=== PATIENT | female | born 1960 | race Caucasian/White ===

== ENCOUNTER 2022-04-13 10:46 | Emergency (ER) | payer BC ==
[2022-04-13 11:10] VITALS: BP 146/85; PULSE 76
[2022-04-13] MEDS ORDERED: Lidocaine 1% 10 ML MDV INJECT ONE (11:10)
== END 2022-04-13 11:53 | disposition home or self-care (01) ==
LOC: JD.ED 10:46
DX: S60.455A Superficial foreign body of left ring finger, initial encounter (principal); K21.9 Gastro-esophageal reflux disease without esophagitis; I10 Essential (primary) hypertension; Z90.710 Acquired absence of both cervix and uterus; Z88.5 Allergy status to narcotic agent; Z79.899 Other long term (current) drug therapy; W45.8XXA Other foreign body or object entering through skin, initial encounter
CPT/HCPCS: 64450; 99282; 99283-25

== ENCOUNTER 2024-03-19 14:00 | Emergency (ER) | payer BC, OTHER ==
[2024-03-19 15:04] VITALS: BP 160/106; PULSE 94
[2024-03-19] MEDS: Diphtheria,Pertussis(Acell),Tetanus Vaccine 0.5 ML Syringe IM ONE (18:12)
[2024-03-19] MEDS: Diphtheria/Tetanus Toxoids,Adult (Td) 0.5 ML SDV ONE (18:24)
== END 2024-03-19 18:27 | disposition home or self-care (01) ==
LOC: JD.ED 14:00
DX: S02.2XXA Fracture of nasal bones, initial encounter for closed fracture (principal); S09.93XA Unspecified injury of face, initial encounter; I10 Essential (primary) hypertension; K21.9 Gastro-esophageal reflux disease without esophagitis; Z88.5 Allergy status to narcotic agent; Z79.899 Other long term (current) drug therapy; Z90.710 Acquired absence of both cervix and uterus; W19.XXXA Unspecified fall, initial encounter
CPT/HCPCS: 70450; 70450-26; 70486; 70486-26; 90471; 90715; 99283; 99284-25

== ENCOUNTER 2024-08-29 10:58 | Day surgery (SDC) | payer MEDICARE ==
[~2024-08-29 10:58] MED LIST: Sodium Chloride 0.9% 10 ML Syringe FLUSH PRN; Sodium Chloride 0.9% 10 ML Syringe FLUSH SCH
[2024-08-29 11:49] LABS: ANION GAP 12.4 (5-15); BLOOD UREA NITROGEN,BUN 6 mg/dL (7-18); BUN/CREATININE RATIO 7.5 (14-18); CALCIUM 9.9 mg/dL (8.5-10.1); CARBON DIOXIDE,CO2 27 mEq/L (21-32); CHLORIDE,CL 98 mEq/L (98-107); CREATININE 0.8 mg/dL (0.55-1.02); ESTIMATED GFR 82 mL/min (>60); GLUCOSE RANDOM 119 mg/dL (70-99); POTASSIUM,K 3.4 mEq/L (3.5-5.1); SODIUM,NA 134 mEq/L (136-145)
[2024-08-29] MEDS ORDERED: Propofol 200 MG/20 ML SDV ONE ×5 (13:22→14:42)
[2024-08-29] MEDS ORDERED: Lidocaine 1% PF 2 ML SDV ONE ×2 (13:22)
[2024-08-29] MEDS ORDERED: Lidocaine 1% 4 ML ONE (13:22)
[2024-08-29] MEDS: Lactated Ringers 1,000 ML IV SCH (13:25)
[2024-08-29] MEDS ORDERED: Lactated Ringers 1,000 ML ONE (14:35)
[2024-08-29] MEDS ORDERED: Ketorolac 15 MG/ML SDV ONE ×2 (15:04→15:05)
[2024-08-29] MEDS ORDERED: Bupivacaine 0.5% 30 ML SDV ONE (15:09)
[2024-08-29 16:05] VITALS: BP 121/85; PULSE 88
== END 2024-08-29 16:10 | disposition home or self-care (01) ==
LOC: JD.SDS 10:58
PROVIDERS: ATTEND Surgery
DX: Z12.11 Encounter for screening for malignant neoplasm of colon (principal); K63.5 Polyp of colon; K21.00 Gastro-esophageal reflux disease with esophagitis, without bleeding; K29.50 Unspecified chronic gastritis without bleeding; K62.89 Other specified diseases of anus and rectum; K31.7 Polyp of stomach and duodenum; K64.8 Other hemorrhoids; K64.4 Residual hemorrhoidal skin tags; I10 Essential (primary) hypertension; F32.A Depression, unspecified; Z87.891 Personal history of nicotine dependence; Z79.899 Other long term (current) drug therapy
CPT/HCPCS: 36415; 43239; 45380; 45385; 46221; 80048; J0665; J1885; J2704; J3490; J7120; 00813

== ENCOUNTER 2024-10-17 09:01 | Day surgery (SDC) | payer MEDICARE, OTHER ==
[2024-10-17] MEDS ORDERED: Sodium Chloride 0.9% 10 ML Syringe FLUSH PRN (09:36)
[2024-10-17 09:59] LABS: BASOPHILS ABSOLUTE AUTO 0.1 K/mm3 (0.0-0.2); EOSINOPHILS ABSOLUTE AUTO 0.2 K/mm3 (0.0-0.4); EOSINOPHILS PERCENT AUTO 1.5 % (0.0-6.0); HEMATOCRIT 43.9 % (37.0-47.0); HEMOGLOBIN 14.8 gm/dl (12.0-16.0); IMMATURE GRAN ABSOLUTE AUTO 0.03 K/mm3 (0.00-0.05); IMMATURE GRAN PERCENT AUTO 0.3 % (0.0-0.4); LYMPHOCYTES ABSOLUTE AUTO 3.2 K/mm3 (1.0-4.8); LYMPHOCYTES PERCENT AUTO 29.9 % (24.0-44.0); MEAN CORPUSCULAR HEMOGLOBIN 31.8 pg (28.0-32.0); MEAN CORPUSCULAR HGB CONC 33.7 g/dl (32.0-36.0); MEAN CORPUSCULAR VOLUME 94.2 fl (83.0-99.0); MEAN PLATELET VOLUME 9.3 fl (9.4-12.3); MONOCYTES ABSOLUTE AUTO 0.9 K/mm3 (0.0-0.8); MONOCYTES PERCENT AUTO 8.5 % (0.0-8.0); NEUTROPHILS ABSOLUTE AUTO 6.3 K/mm3 (1.8-7.7); NEUTROPHILS PERCENT AUTO 58.8 % (41.0-71.0); PLATELET COUNT,PLT 343 K/mm3 (150-400); RED BLOOD CELL COUNT 4.66 M/mm3 (4.10-5.30); WHITE BLOOD CELL COUNT,WBC 10.64 K/mm3 (3.9-11.3)
[2024-10-17] MEDS: Sodium Chloride 0.9% 1,000 ML IV ONE (10:00)
[2024-10-17] MEDS: Ondansetron 4 MG/2 ML SDV IVPUSH ONE (10:01)
[2024-10-17] MEDS: Morphine 4 MG/ML Syringe IVPUSH ONE (10:02)
[2024-10-17 10:23] LABS: INR 1.03; PROTHROMBIN TIME 10.9 SECONDS (9.7-12.0)
[2024-10-17 10:25] LABS: A/G RATIO 0.7 (1-2); ALBUMIN 3.3 g/dl (3.4-5.0); ANION GAP 14.2 (5-15); BILIRUBIN TOTAL 0.7 mg/dL (0.2-1.0); BUN/CREATININE RATIO 17.5 (14-18); CALCIUM 9.5 mg/dL (8.5-10.1); CREATININE 0.8 mg/dL (0.55-1.02); EST CRCL DRUG DOSING (CG) 60.54 mL/min; POTASSIUM,K 3.2 mEq/L (3.5-5.1)
[2024-10-17 10:35] LABS: LACTIC ACID 1.5 mmol/L (0.4-2.0)
[2024-10-17] MEDS: Ketorolac 30 MG/ML SDV IVPUSH ONE (11:28)
[2024-10-17] MEDS ORDERED: Propofol 200 MG/20 ML SDV ONE (12:21)
[2024-10-17] MEDS ORDERED: fentaNYL 250 MCG/5 ML SDV ONE (12:22)
[2024-10-17] MEDS ORDERED: Rocuronium 50 MG/5 ML Vial ONE (12:24)
[2024-10-17] MEDS ORDERED: Ondansetron 4 MG/2 ML SDV ONE (12:27)
[2024-10-17] MEDS ORDERED: Dexamethasone 4 MG/ML 5 ML MDV ONE (12:27)
[2024-10-17] MEDS ORDERED: ceFAZolin 2 GM Vial ONE (12:54)
[2024-10-17] MEDS ORDERED: ePHEDrine 50 MG/ML SDV ONE (13:02)
[2024-10-17] MEDS ORDERED: HYDROmorphone 0.5 MG/0.5 ML Syringe ONE ×2 (13:31→13:32)
[2024-10-17] MEDS ORDERED: Sugammadex Sodium 200 MG/2 ML VIAL IV ONE (13:45)
[2024-10-17] MEDS: Iopamidol 612 MG/ML 30 ML SDV ONE (14:47)
[2024-10-17] MEDS ORDERED: fentaNYL 100 MCG/2 ML SDV IVPUSH PRN (15:23)
[2024-10-17] MEDS ORDERED: HYDROmorphone 0.5 MG/0.5 ML Syringe IVPUSH PRN (15:23)
[2024-10-17] MEDS ORDERED: Ketorolac 30 MG/ML SDV IVPUSH SCH (15:30)
[2024-10-17] MEDS: Bupivacaine 0.5% 30 ML SDV ONE (15:34)
[2024-10-17] MEDS: EPINEPHrine 1 MG/ML SDV ONE (15:35)
[2024-10-17 16:41] VITALS: BP 141/93; PULSE 65
[2024-10-17] MEDS: oxyCODONE 5 MG Tab PO PRN (16:47)
== END 2024-10-17 17:15 | disposition home or self-care (01) ==
LOC: JD.ED 09:01 → JD.SDS 12:58
PROVIDERS: ATTEND Surgery
DX: K80.10 Calculus of gallbladder with chronic cholecystitis without obstruction (principal); I10 Essential (primary) hypertension; K21.9 Gastro-esophageal reflux disease without esophagitis; Z79.899 Other long term (current) drug therapy; Z88.8 Allergy status to other drugs, medicaments and biological substances
CPT/HCPCS: 36415; 47563; 74300; 76705; 80053; 83605; 83690; 85025; 85610; 85730; 88304; 96361; 96374; 96375; 99285; A9270; C1713; J0171; J0665; J0690; J1100; J1171; J1885; J2270; J2405; J2704; J3010; J3490; J7030; Q9967; 00790; 99284